=== PATIENT | male | born 1985 | race Caucasian/White ===

== ENCOUNTER 2022-01-28 10:06 | Emergency (ER) | payer OTHER ==
[2022-01-28 10:14] VITALS: PULSE 75; BMI 82.6
[2022-01-28] MEDS ORDERED: MAG HYDROX/AL HYDROX/SIMETH 30 ML UNIT-DOSE CUP PO ONE (10:42)
[2022-01-28] MEDS ORDERED: FAMOTIDINE 20 MG/50 ML IVPB 20 MG/50 ML MG IVPB ONE ×2 (10:42→10:54)
[2022-01-28] MEDS ORDERED: MAG HYDROX/AL HYDROX/SIMETH 30 ML UNIT-DOSE CUP ONE (10:54)
[2022-01-28 11:17] LABS: HEMATOCRIT 47.2 % (35.4-49); HEMOGLOBIN 16.7 G/dL (11.7-16.9); MCH 30.4 pg (25.7-33.7); MCHC 35.3 g/dl (32.0-35.9); MEAN CELL VOLUME 86.1 fl (80-96); MEAN PLT VOLUME 7.9 fl (7.5-11.1); PLATELET COUNT 250.5 10^3/uL (134-434); RBC 5.48 10^6/uL (4.00-5.60); RDW 14.1 % (11.9-15.9)
[2022-01-28 11:24] LABS: ALBUMIN 4.4 g/dl (3.4-5.0); BILIRUBIN,TOTAL 0.9 mg/dl (0.2-1); CALCIUM 9.8 mg/dl (8.5-10); TOT PROT 7.2 g/dl (6.4-8.2)
[2022-01-28 11:52] VITALS: BP 128/85; TEMP 98.4
[2022-01-28 13:06] LABS: PLATELET ESTIMATE ADEQUATE
== END 2022-01-28 13:08 | disposition home or self-care (01) ==
LOC: FER 10:06
PROC: 3E033GC Introduction of Other Therapeutic Substance into Peripheral Vein, Percutaneous Approach (ICD-10-PCS; principal; 2022-01-28)
DX: K21.00 Gastro-esophageal reflux disease with esophagitis, without bleeding (principal)
CPT/HCPCS: 36415; 71045-TC-FY; 80053; 84484; 85025; 93005; 99285-25

== ENCOUNTER 2022-09-23 12:13 | Emergency (ER) | payer OTHER ==
[2022-09-23 12:24] VITALS: BP 116/83; PULSE 76; RESP 18; TEMP 97.7; BMI 37.5
[2022-09-23 13:53] LABS: BASO % 0.7 % (0-2.0); EOS % 2.5 % (0-4.5); HEMATOCRIT 45.3 % (35.4-49); LYMPH % 32.4 % (8-40); MCH 30.8 pg (25.7-33.7); MCHC 35.3 g/dl (32.0-35.9); MEAN PLT VOLUME 8.3 fl (7.5-11.1); MONO % 7.1 % (3.8-10.2); NEUT % 57.3 % (42.8-82.8); PLATELET COUNT 230 10^3/uL (134-434); RBC 5.21 M/mm3 (4.00-5.60); RDW 13.6 % (11.9-15.9); WHITE BLOOD COUNT 6.6 K/mm3 (4.0-10.0)
[2022-09-23] MEDS ORDERED: MECLIZINE HCL 25 MG TABLET (FP) PO ONE (14:14)
[2022-09-23] MEDS ORDERED: MECLIZINE HCL 25 MG TABLET (FP) ONE (14:15)
[2022-09-23 14:17] LABS: ALBUMIN 4.2 g/dl (3.4-5.0); CALCIUM 9.3 mg/dL (8.5-10.1)
[2022-09-23 14:19] LABS: CREATININE 1.1 mg/dL (0.55-1.3)
[2022-09-23 14:22] LABS: BILIRUBIN,TOTAL 0.9 mg/dL (0.2-1); TOT PROT 7.2 g/dl (6.4-8.2)
[2022-09-23] MEDS ORDERED: LORazepam 2 MG TABLET PO ONE (14:53)
[2022-09-23] MEDS ORDERED: LORazepam 0.5 MG TABLET ONE (15:03)
== END 2022-09-23 16:04 | disposition home or self-care (01) ==
LOC: JER 12:13
DX: R42 Dizziness and giddiness (principal)
CPT/HCPCS: 36415; 80053; 83735; 84484; 85025; 93005; 93010; 99284-25

== ENCOUNTER 2023-07-01 02:15 | Emergency (ER) | payer OTHER ==
[2023-07-01 02:30] VITALS: BP 131/78; PULSE 98; RESP 18; TEMP 98.9; BMI 39.9
[2023-07-01] MEDS ORDERED: ONDANSETRON 4 MG/2 ML VIAL IVPUSH ONE (02:52)
[2023-07-01] MEDS ORDERED: SODIUM CHLORIDE 0.9% 500 ML INFUS.BAG IV ONE (02:52)
[2023-07-01] MEDS ORDERED: ACETAMINOPHEN 1000 MG/100 ML BAG IVPB ONE (02:53)
[2023-07-01] MEDS ORDERED: ACETAMINOPHEN INJECTION 100 ML IVPB ONE (02:58)
[2023-07-01] MEDS ORDERED: ONDANSETRON 4 MG/2 ML VIAL ONE (02:58)
[2023-07-01 03:31] LABS: BASO % 0.4 % (0-2.0); EOS % 2.1 % (0-4.5); HEMATOCRIT 41.9 % (35.4-49); HEMOGLOBIN 14.6 GM/dL (11.7-16.9); LYMPH % 13.3 % (8-40); MCH 29.9 pg (25.7-33.7); MCHC 34.8 g/dl (32.0-35.9); MEAN CELL VOLUME 86.1 fl (80-96); MEAN PLT VOLUME 8.3 fl (7.5-11.1); MONO % 7.8 % (3.8-10.2); NEUT % 76.4 % (42.8-82.8); PLATELET COUNT 222 10^3/uL (134-434); RBC 4.87 M/mm3 (4.00-5.60); RDW 13.7 % (11.9-15.9); WHITE BLOOD COUNT 7.8 K/mm3 (4.0-10.0)
[2023-07-01 05:01] LABS: POTASSIUM 3.8 mmol/L (3.5-5.1)
[2023-07-01 05:03] LABS: CALCIUM 8.8 mg/dL (8.5-10.1); MAGNESIUM 1.9 mg/dL (1.8-2.4)
[2023-07-01 05:04] LABS: ALBUMIN 3.6 g/dl (3.4-5.0)
[2023-07-01 05:06] LABS: CREATININE 1.1 mg/dL (0.55-1.3)
[2023-07-01 05:08] LABS: BILIRUBIN,TOTAL 0.7 mg/dL (0.2-1); TOT PROT 6.5 g/dl (6.4-8.2)
== END 2023-07-01 05:41 | disposition home or self-care (01) ==
LOC: JER 02:15
PROC: 3E033NZ Introduction of Analgesics, Hypnotics, Sedatives into Peripheral Vein, Percutaneous Approach (ICD-10-PCS; principal; 2023-07-01)
PROC: 3E033GC Introduction of Other Therapeutic Substance into Peripheral Vein, Percutaneous Approach (ICD-10-PCS; 2023-07-01)
DX: R10.11 Right upper quadrant pain (principal); R10.12 Left upper quadrant pain; A04.72 Enterocolitis due to Clostridium difficile, not specified as recurrent; R14.0 Abdominal distension (gaseous); R11.0 Nausea; R50.9 Fever, unspecified; Z20.822 Contact with and (suspected) exposure to COVID-19
CPT/HCPCS: 0241U-QW; 36415; 80053; 83690; 83735; 85025; 99284-25

== ENCOUNTER 2023-07-06 22:18 | Inpatient (IN) | payer OTHER ==
[2023-07-06] MEDS ORDERED: ACETAMINOPHEN 1000 MG/100 ML BAG IVPB ONE (22:41)
[2023-07-06] MEDS ORDERED: LACTATED RINGERS SOLUTION 1000 ML INFUS.BAG IV ONE (22:41)
[2023-07-06] MEDS ORDERED: ONDANSETRON 4 MG/2 ML VIAL IVPUSH ONE (22:41)
[2023-07-06] MEDS ORDERED: morphine CARPU-JECT 4 MG/1 ML DISP.SYRIN IVPUSH ONE ×2 (22:42→23:28)
[2023-07-06] MEDS ORDERED: morphine SULFATE 4 MG/ML VIAL ONE ×2 (23:10→23:36)
[2023-07-06] MEDS ORDERED: ONDANSETRON 4 MG/2 ML VIAL ONE (23:11)
[2023-07-06] MEDS ORDERED: ACETAMINOPHEN INJECTION 100 ML IVPB ONE (23:11)
[2023-07-06 23:14] LABS: EOS % 2.8 % (0-4.5); HEMATOCRIT 45.3 % (35.4-49); HEMOGLOBIN 15.5 GM/dL (11.7-16.9); LYMPH % 30.1 % (8-40); MCH 29.5 pg (25.7-33.7); MCHC 34.2 g/dl (32.0-35.9); MEAN CELL VOLUME 86.3 fl (80-96); MEAN PLT VOLUME 8.1 fl (7.5-11.1); MONO % 6.4 % (3.8-10.2); NEUT % 59.7 % (42.8-82.8); PLATELET COUNT 297 10^3/uL (134-434); RBC 5.25 M/mm3 (4.00-5.60); RDW 13.5 % (11.9-15.9); WHITE BLOOD COUNT 9.6 K/mm3 (4.0-10.0)
[2023-07-06 23:30] LABS: CHLORIDE 107 mmol/L (98-107); SODIUM 139 mmol/L (136-145)
[2023-07-06 23:32] LABS: CALCIUM 8.8 mg/dL (8.5-10.1)
[2023-07-06 23:33] LABS: BLOOD UREA NITROGEN 15.8 mg/dL (7-18); CO2 25 mmol/L (21-32); GLUCOSE,RANDOM 125 mg/dL (74-106); LIPASE 73 U/L (73-393); MAGNESIUM 2.1 mg/dL (1.8-2.4)
[2023-07-06 23:36] LABS: CREATININE 1.2 mg/dL (0.55-1.3); SGOT/AST 101 U/L (15-37); SGPT/ALT 128 U/L (13-61)
[2023-07-06 23:38] LABS: BILIRUBIN,TOTAL 0.8 mg/dL (0.2-1); TOT PROT 7.1 g/dl (6.4-8.2)
[2023-07-06 23:39] LABS: ALK PHOS 83 U/L (45-117)
[2023-07-06 23:53] LABS: ANION GAP 7 mmol/L (4-13); POTASSIUM 6.5 mmol/L (3.5-5.1)
[2023-07-07] MEDS ORDERED: HYDROmorphone HCl 2 MG/ML VIAL IVPUSH ONE (00:21)
[2023-07-07] MEDS ORDERED: HYDROmorphone HCl 2 MG/ML VIAL ONE (00:33)
[2023-07-07] MEDS ORDERED: KETOROLAC TROMETHAMINE 15 MG/ML VIAL ONE (01:34)
[2023-07-07] MEDS ORDERED: KETOROLAC TROMETHAMINE 30 MG/1 ML VIAL IVPUSH ONE (01:34)
[2023-07-07] MEDS ORDERED: KETOROLAC TROMETHAMINE 15 MG/ML VIAL IVPUSH ONE (01:41)
[2023-07-07] MEDS ORDERED: ONDANSETRON 4 MG/2 ML VIAL IVPUSH ONE (01:45)
[2023-07-07] MEDS ORDERED: ONDANSETRON 4 MG/2 ML VIAL ONE (01:48)
[2023-07-07 02:15] LABS: POTASSIUM 3.5 mmol/L (3.5-5.1)
[2023-07-07 02:16] LABS: CALCIUM 8.3 mg/dL (8.5-10.1)
[2023-07-07 02:17] LABS: BLOOD UREA NITROGEN 13.3 mg/dL (7-18)
[2023-07-07 02:20] LABS: CREATININE 1.1 mg/dL (0.55-1.3)
[2023-07-07] MEDS ORDERED: ACETAMINOPHEN 1000 MG/100 ML BAG IVPB PRN (03:32)
[2023-07-07] MEDS ORDERED: morphine SULFATE 4 MG/ML VIAL IVPUSH PRN (03:33)
[2023-07-07] MEDS ORDERED: ONDANSETRON 4 MG/2 ML VIAL IVPUSH PRN (03:43)
[2023-07-07] MEDS ORDERED: oxyCODONE HCL 5 MG TABLET PO PRN (03:56)
[2023-07-07] MEDS ORDERED: HYDROmorphone HCL 2 MG TABLET PO PRN (03:57)
[2023-07-07] MEDS ORDERED: HYDROmorphone HCl 2 MG/ML VIAL IVPUSH PRN (03:59)
[2023-07-07] MEDS: DEXTROSE 5%-LACTATED RINGERS 1,000 ML IV SCH (05:08)
[2023-07-07] MEDS: VANCOMYCIN 250 MG/5 ML ORAL SOLUTION PO SCH ×4 (06:12→23:58)
[2023-07-07] MEDS ORDERED: PANTOPRAZOLE 40 MG TABLET PO SCH (07:00)
[2023-07-07 07:15] LABS: HEMATOCRIT 42.7 % (35.4-49); HEMOGLOBIN 14.4 GM/dL (11.7-16.9); MCH 29.6 pg (25.7-33.7); MCHC 33.7 g/dl (32.0-35.9); MEAN CELL VOLUME 87.9 fl (80-96); MEAN PLT VOLUME 8.2 fl (7.5-11.1); PLATELET COUNT 278 10^3/uL (134-434); RBC 4.86 M/mm3 (4.00-5.60); RDW 13.1 % (11.9-15.9); WHITE BLOOD COUNT 7.8 K/mm3 (4.0-10.0)
[2023-07-07 07:27] LABS: POTASSIUM 3.9 mmol/L (3.5-5.1)
[2023-07-07 07:31] LABS: CALCIUM 8.6 mg/dL (8.5-10.1)
[2023-07-07 07:32] LABS: ALBUMIN 3.6 g/dl (3.4-5.0); BLOOD UREA NITROGEN 14.5 mg/dL (7-18)
[2023-07-07 07:36] LABS: TOT PROT 6.5 g/dl (6.4-8.2)
[2023-07-07] MEDS ORDERED: clonazePAM 0.5 MG TABLET ONE (08:53)
[2023-07-07] MEDS: PANTOPRAZOLE SODIUM 40 MG VIAL IVPUSH SCH (09:10)
[2023-07-07] MEDS: clonazePAM 0.5 MG TABLET PO SCH ×2 (09:10→21:47)
[2023-07-07] MEDS ORDERED: KETOROLAC TROMETHAMINE 30 MG/1 ML VIAL IVPUSH PRN (09:38)
[2023-07-07 09:58] LABS: URINE APPEARANCE CLEAR; URINE BILIRUBIN NEGATIVE (NEGATIVE); URINE COLOR YELLOW; URINE GLUCOSE (UA) NEGATIVE (NEGATIVE); URINE KETONE NEGATIVE (NEGATIVE)
[2023-07-07 09:59] LABS: PH,URINE 6.5 (5.0-8.0); URINE LEUK ESTERASE NEGATIVE (NEGATIVE); URINE NITRITE NEGATIVE (NEGATIVE); URINE PROTEIN NEGATIVE (NEGATIVE); URINE UROBILINOGEN 0.2 mg/dL (0.2-1.0)
[2023-07-07] MEDS: MULTIVITAMINS (DAILY MVI) TABLET (FP) PO SCH (11:35)
[2023-07-07] MEDS: THIAMINE HCL 100 MG TABLET (FP) PO SCH (11:36)
[2023-07-07] MEDS: FOLIC ACID 1 MG TABLET (FP) PO SCH (11:36)
[2023-07-07] MEDS: URSODIOL 300 MG CAPSULE PO SCH ×2 (11:36→22:10)
[2023-07-07 19:00] LABS: INR 1.14 (0.83-1.09); PROTHROMBIN TIME (PATIENT) 13.2 SEC (9.7-13.0)
[2023-07-07] MEDS ORDERED: ZOLPIDEM TARTRATE 5 MG TABLET PO PRN (21:44)
[2023-07-08] MEDS: DEXTROSE 5%-LACTATED RINGERS 1,000 ML IV SCH ×2 (03:50→03:55)
[2023-07-08] MEDS: VANCOMYCIN 250 MG/5 ML ORAL SOLUTION PO SCH ×3 (06:06→17:00)
[2023-07-08] MEDS: FOLIC ACID 1 MG TABLET (FP) PO SCH (09:49)
[2023-07-08] MEDS: URSODIOL 300 MG CAPSULE PO SCH ×2 (09:49→22:24)
[2023-07-08] MEDS: THIAMINE HCL 100 MG TABLET (FP) PO SCH (09:50)
[2023-07-08] MEDS: MULTIVITAMINS (DAILY MVI) TABLET (FP) PO SCH (09:50)
[2023-07-08] MEDS: PANTOPRAZOLE SODIUM 40 MG VIAL IVPUSH SCH (09:56)
[2023-07-08] MEDS: clonazePAM 0.5 MG TABLET PO SCH ×2 (09:56→22:24)
[2023-07-08 10:15] LABS: HEMATOCRIT 42.8 % (35.4-49); HEMOGLOBIN 14.5 GM/dL (11.7-16.9); MCH 29.8 pg (25.7-33.7); MCHC 33.8 g/dl (32.0-35.9); MEAN PLT VOLUME 8.3 fl (7.5-11.1); PLATELET COUNT 268 10^3/uL (134-434); RBC 4.87 M/mm3 (4.00-5.60); RDW 13.1 % (11.9-15.9); WHITE BLOOD COUNT 4.5 K/mm3 (4.0-10.0)
[2023-07-08 10:30] LABS: POTASSIUM 3.8 mmol/L (3.5-5.1)
[2023-07-08 10:34] LABS: CALCIUM 8.5 mg/dL (8.5-10.1)
[2023-07-08 10:35] LABS: ALBUMIN 3.7 g/dl (3.4-5.0); BLOOD UREA NITROGEN 13.3 mg/dL (7-18)
[2023-07-08 10:38] LABS: CREATININE 1.1 mg/dL (0.55-1.3)
[2023-07-08 10:40] LABS: BILIRUBIN,TOTAL 1.2 mg/dL (0.2-1); TOT PROT 6.6 g/dl (6.4-8.2)
[2023-07-08] MEDS ORDERED: BUPIVACAINE HCL/PF 0.5% (5MG/ML) 10 ML VIAL ONE ×2 (11:08→11:23)
[2023-07-08] MEDS ORDERED: FENTANYL CITRATE/PF 50 MCG/ML VIAL ONE ×6 (11:29→14:45)
[2023-07-08] MEDS ORDERED: PROPOFOL 40 ML ONE (11:30)
[2023-07-08] MEDS ORDERED: ROCURONIUM BROMIDE 50 MG/5 ML SYRINGE ONE (11:30)
[2023-07-08] MEDS ORDERED: cefOXitin SODIUM 2 GM VIAL (RESTRICTED TO ID) IVPB ONE ×2 (12:15→12:17)
[2023-07-08] MEDS ORDERED: BUPIVACAINE HCL/PF 0.5% (5MG/ML) 10 ML VIAL IJ ONE (12:24)
[2023-07-08] MEDS ORDERED: PROPOFOL 20 ML ONE (13:11)
[2023-07-08] MEDS ORDERED: ONDANSETRON 4 MG/2 ML VIAL ONE (13:35)
[2023-07-08] MEDS ORDERED: DEXAMETHASONE SOD PHOSPHATE 4 MG/1 ML VIAL ONE (13:35)
[2023-07-08] MEDS ORDERED: KETOROLAC TROMETHAMINE 30 MG/1 ML VIAL ONE (13:35)
[2023-07-08] MEDS ORDERED: NEOSTIGMINE METHYLSULFATE 0.5 MG/1 ML - 10 ML MDV ONE (13:36)
[2023-07-08] MEDS ORDERED: GLYCOPYRROLATE 0.2 MG/1 ML VIAL ONE ×2 (13:36)
[2023-07-08] MEDS ORDERED: oxyCODONE HCL 5 MG TABLET PO PRN ×3 (14:15→16:02)
[2023-07-08] MEDS ORDERED: ONDANSETRON 4 MG/2 ML VIAL IVPUSH PRN ×3 (14:15→16:02)
[2023-07-08] MEDS ORDERED: LACTATED RINGERS SOLUTION 1,000 ML IV SCH ×2 (14:15→16:02)
[2023-07-08] MEDS ORDERED: KETOROLAC TROMETHAMINE 30 MG/1 ML VIAL IVPUSH PRN ×2 (14:36→16:02)
[2023-07-08] MEDS ORDERED: DEXTROSE 5%-LACTATED RINGERS 1,000 ML IV SCH ×2 (14:36→15:30)
[2023-07-08] MEDS ORDERED: ZOLPIDEM TARTRATE 5 MG TABLET PO PRN ×2 (14:36→16:02)
[2023-07-08] MEDS ORDERED: ACETAMINOPHEN 500 MG TABLET (FP) PO SCH (15:00)
[2023-07-08] MEDS ORDERED: PIPERACILLIN/TAZOB 4.5 GM 4.5 GM in DEXTROSE 5%-WATER 100 ML IVPB SCH ×2 (15:00→21:00)
[2023-07-08] MEDS ORDERED: SIMETHICONE 80 MG TAB.CHEW (FP) PO ONE (16:29)
[2023-07-08] MEDS ORDERED: VANCOMYCIN 250 MG/5 ML ORAL SOLUTION PO SCH (18:00)
[2023-07-08] MEDS: oxyCODONE HCL 5 MG TABLET PO PRN (18:46)
[2023-07-08] MEDS: ACETAMINOPHEN 500 MG TABLET (FP) PO SCH (20:41)
[2023-07-08] MEDS: PIPERACILLIN/TAZOB 4.5 GM 4.5 GM in DEXTROSE 5%-WATER 100 ML IVPB SCH (20:43)
[2023-07-08] MEDS ORDERED: URSODIOL 300 MG CAPSULE PO SCH (22:00)
[2023-07-08] MEDS ORDERED: clonazePAM 0.5 MG TABLET PO SCH (22:00)
[2023-07-09 00:01] VITALS: RESP 18
[2023-07-09] MEDS: VANCOMYCIN 250 MG/5 ML ORAL SOLUTION PO SCH ×3 (01:28→12:02)
[2023-07-09] MEDS: PIPERACILLIN/TAZOB 4.5 GM 4.5 GM in DEXTROSE 5%-WATER 100 ML IVPB SCH ×2 (03:11→09:21)
[2023-07-09] MEDS: ACETAMINOPHEN 500 MG TABLET (FP) PO SCH ×3 (07:46→15:12)
[2023-07-09 08:50] LABS: BASO % 0.3 % (0-2.0); EOS % 1.3 % (0-4.5); HEMATOCRIT 40.2 % (35.4-49); HEMOGLOBIN 13.8 GM/dL (11.7-16.9); LYMPH % 23.9 % (8-40); MCH 29.9 pg (25.7-33.7); MCHC 34.2 g/dl (32.0-35.9); MEAN CELL VOLUME 87.3 fl (80-96); MEAN PLT VOLUME 8.3 fl (7.5-11.1); MONO % 7.3 % (3.8-10.2); NEUT % 67.2 % (42.8-82.8); PLATELET COUNT 246 10^3/uL (134-434); RBC 4.61 M/mm3 (4.00-5.60); RDW 13.2 % (11.9-15.9); WHITE BLOOD COUNT 6.9 K/mm3 (4.0-10.0)
[2023-07-09 09:21] LABS: POTASSIUM 3.7 mmol/L (3.5-5.1)
[2023-07-09] MEDS: URSODIOL 300 MG CAPSULE PO SCH (09:23)
[2023-07-09] MEDS: clonazePAM 0.5 MG TABLET PO SCH ×2 (09:23→09:33)
[2023-07-09 09:26] LABS: ALBUMIN 3.6 g/dl (3.4-5.0)
[2023-07-09 09:27] LABS: BLOOD UREA NITROGEN 10.4 mg/dL (7-18); CALCIUM 8.9 mg/dL (8.5-10.1); MAGNESIUM 2.1 mg/dL (1.8-2.4)
[2023-07-09 09:28] LABS: CREATININE 1.1 mg/dL (0.55-1.3)
[2023-07-09 09:29] LABS: PHOSPHOROUS 3.7 mg/dL (2.5-4.9)
[2023-07-09 09:30] LABS: BILIRUBIN,TOTAL 1.3 mg/dL (0.2-1); TOT PROT 6.6 g/dl (6.4-8.2)
[2023-07-09] MEDS ORDERED: PANTOPRAZOLE SODIUM 40 MG VIAL IVPUSH SCH ×2 (10:00)
[2023-07-09] MEDS ORDERED: FOLIC ACID 1 MG TABLET (FP) PO SCH ×2 (10:00)
[2023-07-09] MEDS ORDERED: MULTIVITAMINS (DAILY MVI) TABLET (FP) PO SCH ×2 (10:00)
[2023-07-09] MEDS ORDERED: THIAMINE HCL 100 MG TABLET (FP) PO SCH ×2 (10:00)
[2023-07-09] MEDS: oxyCODONE HCL 5 MG TABLET PO PRN (15:11)
[2023-07-09 15:53] VITALS: BP 129/72; PULSE 72; TEMP 98.6
[2023-07-09 16:43] VITALS: BMI 42.2
== END 2023-07-09 16:36 | disposition home or self-care (01) | DRG 263 ==
LOC: JER 22:18 → JERBED 07-07 01:39 → J8W 07-07 15:47
PROVIDERS: ADMIT Internal Medicine; ATTEND Student in an Organized Health Care Education/Training Program
PROC: 0FT44ZZ Resection of Gallbladder, Percutaneous Endoscopic Approach (ICD-10-PCS; principal; 2023-07-08 11:30)
DX: K81.0 Acute cholecystitis (principal); F41.9 Anxiety disorder, unspecified; K21.9 Gastro-esophageal reflux disease without esophagitis; G43.909 Migraine, unspecified, not intractable, without status migrainosus; R74.01 Elevation of levels of liver transaminase levels; K76.0 Fatty (change of) liver, not elsewhere classified; R16.1 Splenomegaly, not elsewhere classified; K82.1 Hydrops of gallbladder
CPT/HCPCS: 36415; 71045-TC-FY; 71275-TC; 74174-TC; 76705-TC; 78226-TC; 80048; 80053; 81003; 83036; 83605; 83690; 83735; 84100; 84484; 85025; 85027; 85610; 86704; 86709; 86803; 86850; 86900; 86901; 87340; 87517; 87635; 88304-TC; 93005; 93010; 94760; 99285-25; A9537; Q9967

== ENCOUNTER 2023-07-26 15:46 | Emergency (ER) | payer OTHER ==
[2023-07-26 15:55] VITALS: BP 140/80; PULSE 84; RESP 18; TEMP 99; BMI 43.1
[2023-07-26] MEDS ORDERED: SODIUM CHLORIDE 1,000 ML IV STA (16:25)
[2023-07-26] MEDS ORDERED: ONDANSETRON 4 MG/2 ML VIAL IVPB ONE (16:26)
[2023-07-26] MEDS ORDERED: ACETAMINOPHEN 1000 MG/100 ML BAG IVPB ONE (16:29)
[2023-07-26 16:55] LABS: HEMATOCRIT 42.7 % (35.4-49); HEMOGLOBIN 14.5 G/dL (11.7-16.9); MCH 30.1 pg (25.7-33.7); MEAN CELL VOLUME 88.6 fl (80-96); MEAN PLT VOLUME 8.3 fl (7.5-11.1); PLATELET COUNT 267.5 10^3/uL (134-434); RBC 4.82 10^6/uL (4.00-5.60); RDW 13.9 % (11.9-15.9); WHITE BLOOD COUNT 6.8 10^3/uL (4.0-10.8)
[2023-07-26] MEDS ORDERED: ONDANSETRON 4 MG/2 ML VIAL ONE (17:06)
[2023-07-26] MEDS ORDERED: ACETAMINOPHEN INJECTION 100 ML IVPB ONE (17:06)
[2023-07-26 17:16] LABS: ALBUMIN 4.6 g/dl (3.4-5.0); BILIRUBIN,TOTAL 0.6 mg/dl (0.2-1); CALCIUM 9.3 mg/dl (8.5-10.1); POTASSIUM 4.1 mmol/L (3.5-5.1); TOT PROT 6.6 g/dl (6.4-8.2)
[2023-07-26 18:38] LABS: PLATELET ESTIMATE ADEQUATE
== END 2023-07-26 18:59 | disposition home or self-care (01) ==
LOC: FER 15:46
DX: R11.2 Nausea with vomiting, unspecified (principal); G89.18 Other acute postprocedural pain; R10.31 Right lower quadrant pain
CPT/HCPCS: 36415; 74176-TC; 76705-TC; 76856-TC; 80053; 81003; 83690; 85027; 99284-25

== ENCOUNTER 2023-11-20 23:06 | Observation (INO) | payer OTHER ==
[2023-11-21] MEDS ORDERED: KETOROLAC TROMETHAMINE 30 MG/1 ML VIAL ONE ×2 (00:34→10:41)
[2023-11-21] MEDS: KETOROLAC TROMETHAMINE 30 MG/1 ML VIAL IM ONE (00:39)
[2023-11-21] MEDS ORDERED: diphenhydrAMINE HCL 25 MG CAPSULE (FP) PO ONE (01:51)
[2023-11-21] MEDS: diphenhydrAMINE HCL 25 MG CAPSULE (FP) PO ONE (02:51)
[2023-11-21 05:35] LABS: HEMATOCRIT 41.5 % (35.4-49); HEMOGLOBIN 14.1 GM/dL (11.7-16.9); MCH 29.8 pg (25.7-33.7); MCHC 34.1 g/dl (32.0-35.9); MEAN CELL VOLUME 87.6 fl (80-96); MEAN PLT VOLUME 8.7 fl (7.5-11.1); PLATELET COUNT 238 10^3/uL (134-434); RBC 4.73 M/mm3 (4.00-5.60); RDW 13.8 % (11.9-15.9); WHITE BLOOD COUNT 9.3 K/mm3 (4.0-10.0)
[2023-11-21 05:48] LABS: POTASSIUM 3.7 mmol/L (3.5-5.1)
[2023-11-21 05:50] LABS: ALBUMIN 3.6 g/dl (3.4-5.0); CALCIUM 8.9 mg/dL (8.5-10.1)
[2023-11-21 05:53] LABS: CREATININE 1.1 mg/dL (0.55-1.3); URIC ACID 8.2 mg/dL (2.6-7.2)
[2023-11-21 05:55] LABS: BILIRUBIN,TOTAL 0.7 mg/dL (0.2-1); TOT PROT 6.5 g/dl (6.4-8.2)
[2023-11-21 07:17] VITALS: RESP 18
[2023-11-21] MEDS: KETOROLAC TROMETHAMINE 30 MG/1 ML VIAL IVPUSH ONE (10:51)
[2023-11-21] MEDS ORDERED: predniSONE 20 MG TABLET (UD) ONE (12:57)
[2023-11-21] MEDS ORDERED: PANTOPRAZOLE 40 MG TABLET PO ONE (12:57)
[2023-11-21] MEDS: predniSONE 20 MG TABLET (UD) PO SCH (13:04)
[2023-11-21] MEDS: PANTOPRAZOLE 40 MG TABLET PO SCH (13:04)
[2023-11-21] MEDS: ACETAMINOPHEN 1000 MG/100 ML BAG IVPB PRN (14:38)
[2023-11-21 17:07] VITALS: BMI 45.1
[2023-11-21] MEDS: KETOROLAC TROMETHAMINE 30 MG/1 ML VIAL IVPUSH PRN (22:00)
[2023-11-22 09:26] VITALS: BP 144/80; PULSE 83; TEMP 98.4
[2023-11-22 09:27] LABS: HEMATOCRIT 39.9 % (35.4-49); HEMOGLOBIN 13.7 GM/dL (11.7-16.9); MCH 30.1 pg (25.7-33.7); MCHC 34.2 g/dl (32.0-35.9); PLATELET COUNT 223 10^3/uL (134-434); RBC 4.53 M/mm3 (4.00-5.60); RDW 14.2 % (11.9-15.9); WHITE BLOOD COUNT 8.3 K/mm3 (4.0-10.0)
[2023-11-22] MEDS ORDERED: predniSONE 20 MG TABLET (UD) PO SCH (10:00)
[2023-11-22 10:07] LABS: ALBUMIN 3.3 g/dl (3.4-5.0); BLOOD UREA NITROGEN 11.8 mg/dL (7-18); CALCIUM 9.2 mg/dL (8.5-10.1); MAGNESIUM 2.2 mg/dL (1.8-2.4)
[2023-11-22 10:10] LABS: PHOSPHOROUS 3.1 mg/dL (2.5-4.9)
[2023-11-22 10:11] LABS: CREATININE 0.8 mg/dL (0.55-1.3)
[2023-11-22 10:12] LABS: BILIRUBIN,TOTAL 0.8 mg/dL (0.2-1); TOT PROT 6.4 g/dl (6.4-8.2)
[2023-11-22] MEDS: predniSONE 10 MG, predniSONE 20 MG PO SCH (10:15)
== END 2023-11-22 12:25 | disposition home or self-care (01) ==
LOC: JER 23:06 → JERBED 11-21 04:52 → J5S 11-21 14:18
PROVIDERS: ADMIT Internal Medicine; ATTEND Nurse Practitioner Acute Care
PROC: 3E033NZ Introduction of Analgesics, Hypnotics, Sedatives into Peripheral Vein, Percutaneous Approach (ICD-10-PCS; principal; 2023-11-21)
PROC: 3E0233Z Introduction of Anti-inflammatory into Muscle, Percutaneous Approach (ICD-10-PCS; 2023-11-21)
PROC: 3E0333Z Introduction of Anti-inflammatory into Peripheral Vein, Percutaneous Approach (ICD-10-PCS; 2023-11-21)
PROC: 3E033GC Introduction of Other Therapeutic Substance into Peripheral Vein, Percutaneous Approach (ICD-10-PCS; 2023-11-21)
DX: M10.9 Gout, unspecified (principal); M79.672 Pain in left foot; F41.9 Anxiety disorder, unspecified; K21.9 Gastro-esophageal reflux disease without esophagitis; R61 Generalized hyperhidrosis; M25.572 Pain in left ankle and joints of left foot; E66.9 Obesity, unspecified; Z71.89 Other specified counseling
CPT/HCPCS: 36415; 73610-TC-LT-FY; 73630-TC-LT; 80053; 83735; 84100; 84550; 85027; 85651; 86140; 93971-TC; 96372; 96374; 96375; 96376; 97116-GP; 99285-25; G0378; J0131

== ENCOUNTER 2024-12-14 09:37 | Emergency (ER) | payer OTHER ==
[2024-12-14 09:46] VITALS: BP 162/72; PULSE 76; RESP 16; TEMP 99; BMI 40.6
[2024-12-14] MEDS ORDERED: ONDANSETRON 4 MG/2 ML VIAL ONE (10:34)
[2024-12-14] MEDS ORDERED: FAMOTIDINE 20 MG/50 ML IVPB 20 MG/50 ML MG IVPB ONE (10:34)
[2024-12-14] MEDS ORDERED: ACETAMINOPHEN INJECTION 100 ML ONE (10:34)
[2024-12-14 10:41] LABS: ABSOLUTE IMMATURE GRANULOCYTES 0.01 x10^3/uL (0.0-0.031); BASOPHILS # 0.05 x10^3/uL (0.01-0.08); EOSINOPHILS # 0.16 x10^3/uL (0.04-0.54); HEMATOCRIT 45.6 % (40.1-51.0); MCHC 35.1 g/dl (32.3-36.5); MEAN CELL VOLUME 86.7 fl (79.0-92.2); MEAN PLT VOLUME 10.3 fl (9.4-12.4); MONOCYTE # 0.35 x10^3/uL (0.30-0.82); MONOCYTE % 6.6 % (5.3-12.2); PLATELET COUNT 256 x10^3/uL (163-337); RDW 12.8 % (12.1-15.9)
[2024-12-14] MEDS: ONDANSETRON 4 MG/2 ML VIAL IVPUSH ONE (10:52)
[2024-12-14] MEDS: FAMOTIDINE 20 MG/50 ML IVPB 20 MG/50 ML MG IVPB ONE (10:52)
[2024-12-14] MEDS: SODIUM CHLORIDE 0.9% 500 ML INFUS.BAG IV ONE (10:52)
[2024-12-14] MEDS: ACETAMINOPHEN 1000 MG/100 ML BAG IVPB ONE (10:52)
[2024-12-14 11:04] LABS: POTASSIUM 4.6 mmol/L (3.5-5.1); THROAT:GRP A STREP NOT DETECTED (NOTDETECTED)
[2024-12-14 11:07] LABS: CALCIUM 9.8 mg/dL (8.5-10.1)
[2024-12-14 11:08] LABS: BLOOD UREA NITROGEN 13.6 mg/dL (7-18)
== END 2024-12-14 16:12 | disposition home or self-care (01) ==
LOC: JER 09:37
PROC: 3E033GC Introduction of Other Therapeutic Substance into Peripheral Vein, Percutaneous Approach (ICD-10-PCS; principal; 2024-12-14)
PROC: 3E033GC Introduction of Other Therapeutic Substance into Peripheral Vein, Percutaneous Approach (ICD-10-PCS; 2024-12-14)
PROC: 3E033NZ Introduction of Analgesics, Hypnotics, Sedatives into Peripheral Vein, Percutaneous Approach (ICD-10-PCS; 2024-12-14)
DX: R07.89 Other chest pain (principal); K21.9 Gastro-esophageal reflux disease without esophagitis; R06.02 Shortness of breath; R14.2 Eructation; R68.83 Chills (without fever); R03.0 Elevated blood-pressure reading, without diagnosis of hypertension; R10.13 Epigastric pain
CPT/HCPCS: 0241U-QW; 36415; 71046-TC-FY; 76705-TC; 80053; 84484; 85025; 87651; 93005; 93010; 99285-25; J0131